=== PATIENT | female | born 1955 | race Caucasian/White ===

== ENCOUNTER → 2016-11-23 | Outpatient (CLI) | payer OTHER ==
[2016-11-23 12:08] LABS: CH 32.8; CHCM 33.3; HCT 45.1 % (34.0-46.0); HDW 2.12; HGB 14.7 gm/dL (11.4-16.0); MCH 32.2 pg (25.0-35.0); MCHC 32.7 g/dL (31.0-37.0); MCV 98.7 fL (80.0-100.0); Mean Platelet Volume 6.8; RBC 4.57 m/uL (3.80-5.40); RDW 12.8 % (11.5-15.5); WBC 8.4 k/uL (3.8-10.6)
[2016-11-23 12:13] LABS: INR 1.1 (<1.1); Prothrombin Time 10.9 sec (9.0-12.0)
[2016-11-23 12:20] LABS: ALT 23 U/L (9-52); AST 25 U/L (14-36); Alkaline Phosphatase 71 U/L (38-126); Anion Gap 9 mmol/L; Blood Urea Nitrogen 11 mg/dL (7-17); Calcium 9.4 mg/dL (8.4-10.2); Carbon Dioxide 26 mmol/L (22-30); Chloride 103 mmol/L (98-107); Glucose 96 mg/dL (74-99); Non-African American GFR(MDRD) >60 (>60 ml/min/1.73 sqM); Potassium 4.2 mmol/L (3.5-5.1); Sodium 138 mmol/L (137-145); Total Bilirubin 1.1 mg/dL (0.2-1.3); Total Protein 6.9 g/dL (6.3-8.2)
== END | disposition home or self-care (01) ==
LOC: LABWHC1 11:37
PROVIDERS: ATTEND Internal Medicine Gastroenterology
DX: K70.30 Alcoholic cirrhosis of liver without ascites (principal)
CPT/HCPCS: 36415; 80053; 82105; 85027; 85610

== ENCOUNTER → 2018-03-06 | Outpatient (CLI) | payer OTHER ==
--- NOTE | 2018-03-06 15:38 | CT ---
EXAMINATION TYPE: CT soft tissue neck w con DATE OF EXAM: 03/06/2018 3:11 PM COMPARISON: None HISTORY: Right ear/neck pain with hearing loss CT DLP: 338.5 mGycm Automated exposure control for dose reduction was used. CONTRAST: CT scan of the neck is performed following with IV Contrast, patient injected with 100 mL of Isovue 3 00. Axial images are obtained, coronal and sagittal reformatted images are reviewed. FINDINGS: Airway: No gross abnormality seen. Parotid/submandibular glands: No gross abnormality seen. Carotid/Vascular Structures: There is stenosis present of the proximal internal carotid artery on the right. Atheromatous change is present at the carotid bulbs bilaterally Osseous Structures: There is multilevel spondylosis present. Spinal curvature is noted. Loss of disc height present at the intervertebral levels C3-4, C4-5, C5-6, C6-7. Multilevel foraminal encroachmen t is present, mild multilevel spinal stenosis. Other: Emphysematous changes are present in the upper lobes. Atheromatous change present in the aorta and super aortic branch vessels. IMPRESSION: Degenerative disc disease, emphysema, proximal internal carotid artery stenosis on the r ight
== END | disposition home or self-care (01) ==
LOC: RADCTMAIN 14:45
PROVIDERS: ATTEND Otolaryngology
DX: M50.31 Other cervical disc degeneration, high cervical region (principal); I65.21 Occlusion and stenosis of right carotid artery
CPT/HCPCS: 70491; Q9967

== ENCOUNTER 2023-12-05 10:45 | Emergency (ER) | payer OTHER ==
[2023-12-05 10:59] VITALS: BP 141/83; PULSE 98; RESP 20; TEMP 98
--- NOTE | 2023-12-05 11:23 | ED ---
General Adult HPI - General Chief complaint: Recheck/Abnormal Lab/Rx Stated complaint: L arm port issue Time Seen by Provider: 12/05/23 11:02 Source: patient Mode of arrival: ambulatory Limitations: no limitations - History of Present Illness Initial comments: 68-year-old female presents emergency department reporting a malfunctioning right PICC line. She states that she was told she can take the dressing off. She was using a pair of scissors to cut the dressing when she accidentally cut through the PICC line. Patient is receiving Rocephin antibiotics. There was control of the bleeding. Patient presents for evaluation of the PICC line. - Related Data Home Medications Medication Instructions Recorded Confirmed ALPRAZolam [Xanax] 0.25 mg PO DAILY PRN 08/13/14 09/04/14 Albuterol Inhaler [Ventolin Hfa 1 - 2 puff INHALATION Q6HR PRN 08/13/14 09/04/14 Inhaler] Hypromellose [Artificial Tears] 1 drop BOTH EYES BID 08/13/14 09/04/14 Loperamide [Imodium] 2 mg PO DAILY PRN 08/13/14 09/04/14 Melatonin [Melatonin ER] 10 mg PO HS 08/13/14 09/04/14 Metoprolol Tartrate [Lopressor] 25 mg PO BID 08/13/14 09/04/14 Omeprazole [PriLOSEC] 20 mg PO AC-BRKFST 08/13/14 09/04/14 hydroCHLOROthiazide [Hydrodiuril] 25 mg PO QAM 08/13/14 09/04/14 raNITIdine HCL [Zantac] 150 mg PO HS PRN 08/13/14 09/04/14 Ibuprofen [Motrin] 800 mg PO DAILY 09/02/14 09/02/14 Allergies Allergy/AdvReac Type Severity Reaction Status Date / Time adhesive Allergy Rash/Hives. Verified 12/05/23 10:59 BLISTERS. iodine Allergy Rash/Hives Verified 12/05/23 10:59 latex Allergy Rash/Hives Verified 12/05/23 10:59 Review of Systems ROS Statement: Those systems with pertinent positive or pertinent negative responses have been documented in the HPI. ROS Other: All systems not noted in ROS Statement are negative. Past Medical History Past Medical History: GERD/Reflux, Hypertension, Liver Disease Additional Past Medical History / Comment(s): Hepatitis A, IBS. PANCREATITIS (IP ADMISSION 08/14/2014). History of Any Multi-Drug Resistant Organisms: None Reported Past Surgical History: Section, Tonsillectomy Additional Past Surgical History / Comment(s): Carpal Tunnel Surgery Past Anesthesia/Blood Transfusion Reactions: Motion Sickness Past Psychological History: Anxiety Smoking Status: Current every day smoker Past Alcohol Use History: Daily Past Drug Use History: None Reported General Exam Limitations: no limitations General appearance: alert, in no apparent distress Head exam: Present: atraumatic, normocephalic, normal inspection Eye exam: Present: normal appearance, PERRL, EOMI. Absent: scleral icterus, co njunctival injection, periorbital swelling ENT exam: Present: normal exam, mucous membranes moist Neck exam: Present: normal inspection. Absent: tenderness, meningismus, lymphadenopathy Respiratory exam: Present: normal lung sounds bilaterally. Absent: respiratory distress, wheezes, rales, rhonchi, stridor Cardiovascular Exam: Present: regular rate, normal rhythm, normal heart sounds. Absent: systolic murmur, diastolic murmur, rubs, gallop, clicks GI/Abdominal exam: Present: soft, normal bowel sounds. Absent: distended, tenderness, guarding, rebound, rigid Extremities exam: Present: normal inspection, full ROM, normal capillary refill, other (PICC line present in right upper extremity. No dislodgment). Absent: tenderness, pedal edema, joint swelling, calf tenderness Back exam: Present: normal inspection Neurological exam: Present: alert, oriented X3, CN II-XII intact Psychiatric exam: Present: normal affect, normal mood Skin exam: Present: warm, dry, intact, normal color. Absent: rash Course Vital Signs 12/05/23 10:56 Temperature 98 F Pulse Rate 98 Respiratory 20 Rate Blood Pressure 141/83 O2 Sat by Pulse 99 Oximetry Medical Decision Making - Medical Decision Making Was pt. sent in by a medical professional or institution (, PA, ORACLE ARCHITECT, urgent care, hospital, or longterm...) When possible be specific @ -No Did you speak to anyone other than the patient for history (EMS, parent, family, police, friend...)? What history was obtained from this source @ -No Did you review nursing and triage notes (agree or disagree)? Why? @ -I reviewed and agree with nursing and triage notes Were old charts reviewed (outside hosp., previous admission, EMS record, old EKG, old radiological studies, urgent care reports/EKG's, longterm records)? Report findings @ -No old charts were reviewed Differential Diagnosis (chest pain, altered mental status, abdominal pain women, abdominal pain men, vaginal bleeding, weakness, fever, dyspnea, syncope, headache, dizziness, GI bleed, back pain, seizure, CVA, palpatations, mental health, musculoskeletal)? @ -PICC line malfunction EKG interpreted by me (3pts min.). @ -Not done X-rays interpreted by me (1pt min.). @ -None done CT interpreted by me (1pt min.). @ -None done U/S interpreted by me (1pt. min.). @ -None done What testing was considered but not performed or refused? (CT, X-rays, U/S, labs)? Why? @ -None What meds were considered but not given or refused? Why? @ -None Did you discuss the management of the patient with other professionals (professionals i.e. , PA, ORACLE ARCHITECT, lab, RT, psych nurse, social contact worker, ekg technician, teacher, public relations officer, clinical case manager)? Give summary @ -No Was smoking cessation discussed for >3mins.? @ -No Was critical care preformed (if so, how long)? @ -No Were there social determinants of health that impacted care today? How? (Homelessness, low income, unemployed, alcoholism, drug addiction, transportation, low edu. Level, literacy, decrease access to med. care, penitentiary, rehab)? @ -No Was there de-escalation of care discussed even if they declined (Discuss DNR or withdrawal of care, Hospice)? DNR status @ -No What co-morbidities impacted this encounter? (DM, HTN, Smoking, COPD, CAD, Cancer, CVA, ARF, Chemo, Hep., AIDS, mental health diagnosis, sleep apnea, morbid obesity)? @ -None Was patient admitted / discharged? Hospital course, mention meds given and route, prescriptions, significant lab abnormalities, going to OR and other pertinent info. @ -Upon arrival patient seen and evaluated in room 11. The patient cut through a portion of the extension tubing on her PICC line. The portion of extension tubing was removed. The PICC line is then capped at the most distal aspect. It was able to flush and draw without difficulty. Patient will be discharged home at this time. Instructed that she may infuse antibiotics as previously done as the extension tubing does not offer any extra benefit. She is to follow-up with infectious disease and return for any new or worsening symptoms Undiagnosed new problem with uncertain prognosis? @ -No Drug Therapy requiring intensive monitoring for toxicity (Heparin, Nitro, Insulin, Cardizem)? @ -No Were any procedures done? @ -No Diagnosis/symptom? @ -Acute PICC line malfunction Acute, or Chronic, or Acute on Chronic? @ -Acute Uncomplicated (without systemic symptoms) or Complicated (systemic symptoms)? @ -Uncomplicated Side effects of treatment? @ -No Exacerbation, Progression, or Severe Exacerbation? @ -No Poses a threat to life or bodily function? How? (Chest pain, USA, MA, pneumonia, PE, COPD, DKA, ARF, appy, cholecystitis, CVA, Diverticulitis, Homicidal, Suicidal, threat to staff... and all critical care pts) @ -No Disposition Clinical Impression: Bleeding from PICC line Disposition: HOME SELF-CARE Condition: Stable Instructions (If sedation given, give patient instructions): How to Care for Your PICC (Peripherally Inserted Central Catheter) (ED) Is patient prescribed a controlled substance at d/c from ED?: No Referrals: Dank Moody [Primary Care Provider] - 1-2 days Time of Disposition: 11:23
== END 2023-12-05 11:27 | disposition home or self-care (01) ==
LOC: EC 10:45
DX: T82.838A Hemorrhage due to vascular prosthetic devices, implants and grafts, initial encounter (principal); F17.200 Nicotine dependence, unspecified, uncomplicated; Z88.8 Allergy status to other drugs, medicaments and biological substances; Z91.040 Latex allergy status; Z91.041 Radiographic dye allergy status
CPT/HCPCS: 99283

== ENCOUNTER → 2024-01-12 | Outpatient (CLI) | payer MEDICARE | END | disposition home or self-care (01) | LOC: LABPRL 11:26 | PROVIDERS: ATTEND Specialist | DX: M86.172 Other acute osteomyelitis, left ankle and foot (principal); L03.032 Cellulitis of left toe | CPT/HCPCS: 80048; 85025 ==

== ENCOUNTER → 2024-08-28 | Outpatient (CLI) | payer MEDICARE ==
[2024-08-29 01:55] LABS: MCH 35.7 pg (27.0-32.0); MCHC 33.3 g/dL (32.0-37.0); MCV 107.1 FL (80.0-97.0); Mean Platelet Volume 10.2 FL (9.5-12.2); NRBC Per 100 WBC 0 X 10*3/uL (0.00-0.01); Platelet Count 208 X 10*3/uL (140-440); RDW 13.2 % (11.5-14.5); WBC 9.06 X 10*3/uL (4.50-10.00)
[2024-08-29 03:53] LABS: Basophils # (A) 0.04 X 10*3/uL (0.00-0.10); Basophils % (A) 0.4 %; Eosinophils # (A) 0.11 X 10*3/uL (0.04-0.35); Eosinophils % (A) 1.2 %; Lymphocytes # (A) 2.95 X 10*3/uL (0.90-5.00); Lymphocytes % (A) 32.6 %; Macrocytosis (M) 2+ (None Seen); Monocytes # (A) 0.79 X 10*3/uL (0.20-1.00); Monocytes % (A) 8.7 %; Neutrophils # (A) 5.11 X 10*3/uL (1.80-7.70); Neutrophils % (A) 56.4 %
== END | disposition home or self-care (01) ==
LOC: LABWHC1 15:55
PROVIDERS: ATTEND Orthopaedic Surgery
DX: T84.038A Mechanical loosening of other internal prosthetic joint, initial encounter (principal); Z96.619 Presence of unspecified artificial shoulder joint
CPT/HCPCS: 36415; 85025

== ENCOUNTER → 2024-08-28 | Outpatient (CLI) | payer MEDICARE ==
--- NOTE | 2024-08-28 15:50 | CT ---
EXAMINATION TYPE: CT shoulder LT wo con CT DLP: 305.8 mGycm, Automated exposure control for dose reduction was used. DATE OF EXAM: 08/28/2024 3:42 PM COMPARISON: Left shoulder radiograph 02/27/2024 CLINICAL INDICATION:Female, 68 years old with history of T84.038A MECHANICAL LOOSENING OF OTH INTERNA L PROS; PHH, left shoulder pain TECHNIQUE: Axial images were obtained of the left shoulder without the use of IV contrast. Additiona l coronal and sagittal reformatted images and soft tissue and bone window were obtained for review. 3 -D reconstruction was created on a separate workstation. FINDINGS: Postsurgical changes from left shoulder arthroplasty with glenoid and proximal humerus comp onents. This creates streak artifact which limits evaluation. Hardware appears intact with proper ali gnment. Prominent cement around the left humeral prosthesis. No definitive periprosthetic lucency. Th ere is no evidence of acute fracture, subluxation, or dislocation. No significant soft tissue swelli ng or joint effusion is identified. No focal muscular atrophy or edema is identified. The visualized portions of the left lung are clear. IMPRESSION: Postsurgical changes from left shoulder arthroplasty. Hardware appears intact without degenerative pe riprosthetic lucency to suggest loosening. [facility], , 08/28/2024 3:48 PM
== END | disposition home or self-care (01) ==
LOC: RADCTMAIN 14:58
PROVIDERS: ATTEND Orthopaedic Surgery
DX: T84.038A Mechanical loosening of other internal prosthetic joint, initial encounter (principal); Z96.612 Presence of left artificial shoulder joint

== ENCOUNTER 2024-10-31 06:35 | Day surgery (SDC) | payer MEDICARE ==
[2024-10-31] MEDS: IV FLUID CONTINUATION 1,000 ML IV ONE (06:52)
[2024-10-31 07:09] VITALS: TEMP 98
[2024-10-31] MEDS: LACTATED RINGERS 1,000 ML IV SCH (07:14)
[2024-10-31] MEDS ORDERED: PROPOFOL 10 MG/ML 20 ML VIAL IV ONE (07:19)
[2024-10-31] MEDS ORDERED: LIDOCAINE 2% (PF) 20 MG/ML 5 ML VIAL ONE (07:19)
--- NOTE | 2024-10-31 07:42 | P.PCN ---
Date of Procedure: 10/31/24 Procedure(s) Performed: Brief history: Patient is a pleasant 69-year-old white female scheduled for an elective upper endoscopy as well as colonoscopy as a part of evaluation of GERD and intermittent abdominal pain associate with nausea vomiting and change in bowel habits for the last 5 years duration. She has been on Protonix 40 mg daily with some improvement in the symptoms. She is complaining of alternating diarrhea and constipation but no bleeding. Procedure performed: Esophagogastroduodenoscopy with biopsy Colonoscopy Preoperative diagnosis: GERD/abdominal pain/nausea vomiting Change in bowel habits Anesthesia: MAC Procedure: After informed consent was obtained from the patient was brought into the endoscopy unit and IV sedation was administered by anesthesia under continuous monitoring. Initially upper endoscopy was done. The Olympus GF 160 video endoscope was inserted inserted into the mouth and esophagus intubated without any difficulty and was gradually advanced into the stomach and duodenum and carefully examined. The bulb and second part of the duodenum appeared normal. The scope was then withdrawn into the stomach adequately insufflated with air and upon careful examination the antrum had mild diffuse gastritis and biopsies were done from this area. Mucosa body, cardia and fundus appeared normal. The scope was then withdrawn into the esophagus. Small hiatal hernia noted the GE junction was located at 40 cm to the incisors. There were 2 tongues of Hall' s appearing mucosa extending 3 mm proximal to the GE junction that was biopsied.. Rest of the esophagus appeared normal. Patient tolerated the procedure well. At this time the patient continued to remain sedation. Initial digital rectal examination was normal. Olympus CF 160 video colonoscope was then inserted into the rectum and gradually advanced to the cecum without any difficulty. Careful examination was performed as the scope was gradually being withdrawn. The prep was excellent. The cecum, ascending colon, transverse colon, descending colon, sigmoid colon and rectum appeared normal. Retroflexion was performed in the rectum and no lesions were noted. Patient tolerated the procedure well. Impression: 1. Upper endoscopy revealed mild antral gastritis, small hiatal hernia and short segment Hall's esophagus 2. Colonoscopy was within normal limits with no evidence of colitis or colorectal neoplasia Recommendations: Findings of this examination were discussed with the patient as well as her family. She was advised to follow the biopsy results. Continue with Protonix 40 mg daily and follow antireflux measures. Recommended repeat screening colonoscopy in 10 years.
[2024-10-31 08:01] VITALS: BP 108/79; PULSE 69; RESP 14
== END 2024-10-31 08:27 | disposition home or self-care (01) ==
LOC: ORWHC2ENDO 06:35
PROVIDERS: ATTEND Internal Medicine Gastroenterology
DX: K29.50 Unspecified chronic gastritis without bleeding (principal); K21.00 Gastro-esophageal reflux disease with esophagitis, without bleeding; K22.70 Barrett's esophagus without dysplasia; K44.9 Diaphragmatic hernia without obstruction or gangrene; K76.9 Liver disease, unspecified; J44.9 Chronic obstructive pulmonary disease, unspecified; G62.9 Polyneuropathy, unspecified; I10 Essential (primary) hypertension; F17.210 Nicotine dependence, cigarettes, uncomplicated; Z90.10 Acquired absence of unspecified breast and nipple; Z91.040 Latex allergy status; Z91.041 Radiographic dye allergy status; Z79.4 Long term (current) use of insulin; Z79.899 Other long term (current) drug therapy
CPT/HCPCS: 88305; 88341; 45378; 43239; J2704; J2003